=== PATIENT | male | born 1975 | race Caucasian/White ===

== ENCOUNTER → 2018-12-30 | Outpatient (CLI) | payer BC ==
--- NOTE | 2018-12-30 14:38 | XR ---
Lumbosacral spine HISTORY: Low back pain 5 views of the lumbosacral spine correlated to prior exam 12/08/2013 There is a slight spinal curvature. 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 Lumbar vertebral bodies show preserved height and bone mineralization. Minimal anterolisthesis grade 1 L5-S1, retrolisthesis grade 1 L4-5. Some loss of disc height again noted L4-5, L5-S1. Sclerosis posterior elements of the lower lumbar spine compatible with facet arthropathy. 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 There is mild anterolisthesis L5-S1. Degenerative dis c changes are present.
--- NOTE | 2018-12-30 15:08 | XR ---
Cervical spine Limited HISTORY: Degenerative disc disease, [age] 3 views of the cervical spine, correlation prior exam 12/08/2013 There is reversal the normal cervical lordosis. Anterolisthesis grade 1 C3-4. Loss of disc height pre sent at C3-4, C4-5, C5-6 and C6-7. Extensive spondylosis at C5-6 and C6-7. Sclerosis in the posterior elements compatible with facet arthropathy. Thoracic spinal curvature is noted. Cervical vertebral b odies show preserved height and bone mineralization. IMPRESSION: Degenerative disc disease and facet arthropathy. Thoracic scoliosis is suspected.
== END | disposition home or self-care (01) ==
LOC: RADXRMAIN 13:13
PROVIDERS: ATTEND Family Medicine
DX: M50.30 Other cervical disc degeneration, unspecified cervical region (principal); M43.17 Spondylolisthesis, lumbosacral region; M47.817 Spondylosis without myelopathy or radiculopathy, lumbosacral region; M46.92 Unspecified inflammatory spondylopathy, cervical region
CPT/HCPCS: 72040; 72110